=== PATIENT | female | born 2000 | race Two or more races ===

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

== ENCOUNTER 2021-10-11 23:00 | Emergency (ER) | payer MEDICAID ==
[~2021-10-11] VITALS: Ht 162.6 cm; Wt 77.1 kg
[2021-10-11 23:38] LABS: Hemoglobin 14.4 g/dL (12.2-16.2)
[2021-10-11 23:41] LABS: Basophils # (auto) 0 10 ^3/uL (0-0.2); Eosinophils # (auto) 0.1 10 ^3/uL (0-0.8); Eosinophils % (auto) 1.9 % (0.0-7.0); Hematocrit 40.9 % (36.0-46.0); Lymphocytes # (auto) 1.3 10 ^3/uL (0.4-5.4); Lymphocytes % (auto) 27.1 % (10.0-50.0); Mean Corpuscular Hemoglobin 30.3 pg (28.0-32.0); Mean Corpuscular Hgb Conc. 35.1 g/dL (32.0-36.0); Mean Corpuscular Volume 86.3 fL (80.0-100.0); Monocytes # (auto) 0.2 10 ^3/uL (0-1.3); Monocytes % (auto) 4.9 % (0.0-12.0); Neutrophils # (auto) 3.2 10 ^3/uL (1.6-8.6); Neutrophils % (auto) 65.1 % (37.0-80.0); Nucleated Red Blood Cells % 0.1 %; Red Blood Cells 4.75 10^6/uL (4.0-5.20); Red Cell Distribution Width 12.1 % (11.8-14.3)
[2021-10-11 23:53] LABS: Albumin 4.6 g/dL (3.4-5.0); BUN/Creatinine Ratio 9.4; Potassium 3.9 mmol/L (3.5-5.1)
[2021-10-11 23:55] LABS: Bilirubin, Total 0.3 mg/dL (0.2-1.0)
[2021-10-12] MEDS ORDERED: IOHEXOL 300 MG/ML 100ML BOTTLE IJ ONE (01:58)
[2021-10-12] MEDS ORDERED: [UNRECOGNIZED DRUG - CODE] EX (03:29)
[2021-10-12 03:50] VITALS: BP 120/75
== END 2021-10-12 04:08 | disposition home or self-care (01) ==
LOC: ER 23:00
DX: K62.5 Hemorrhage of anus and rectum (principal)
CPT/HCPCS: 36415; 74177; 80053; 85025; 99285; Q9967

== ENCOUNTER 2024-01-04 16:41 | Emergency (ER) | payer MEDICAID ==
[~2024-01-04] VITALS: Ht 162.6 cm; Wt 72.7 kg
[~2024-01-04 16:41] MED LIST: [UNRECOGNIZED DRUG - CODE] EX
[2024-01-04 17:25] VITALS: BP 134/87; PULSE 87; RESP 16; TEMP 99.6; O2SAT 99
== END 2024-01-04 17:43 | disposition left against medical advice (07) ==
LOC: ER 16:41
DX: J02.9 Acute pharyngitis, unspecified (principal); Z53.21 Procedure and treatment not carried out due to patient leaving prior to being seen by health care provider